=== PATIENT | male | born 1950 | race Caucasian/White ===

== ENCOUNTER → 2017-05-22 | Outpatient (CLI) | payer OTHER | END | disposition home or self-care (01) | LOC: PCVCCLINIC 15:46 | PROVIDERS: ATTEND Internal Medicine Cardiovascular Disease | DX: I10 Essential (primary) hypertension (principal); E78.00 Pure hypercholesterolemia, unspecified; G47.33 Obstructive sleep apnea (adult) (pediatric); R94.31 Abnormal electrocardiogram [ECG] [EKG]; Z79.82 Long term (current) use of aspirin; Z79.899 Other long term (current) drug therapy | CPT/HCPCS: 80061; 93005; G0463 ==

== ENCOUNTER → 2017-11-21 | Outpatient (CLI) | payer OTHER | END | disposition home or self-care (01) | LOC: PCVCIMAG 13:00 | DX: I10 Essential (primary) hypertension (principal); E78.5 Hyperlipidemia, unspecified; G47.30 Sleep apnea, unspecified | CPT/HCPCS: 80061; 93325; 93351 ==

== ENCOUNTER → 2018-08-26 | Outpatient (CLI) | payer MEDICARE, BC | END | disposition home or self-care (01) | LOC: PCVCCLINIC 11:07 | PROVIDERS: ATTEND Internal Medicine Cardiovascular Disease | DX: I10 Essential (primary) hypertension (principal); E78.00 Pure hypercholesterolemia, unspecified; E11.9 Type 2 diabetes mellitus without complications; Z82.49 Family history of ischemic heart disease and other diseases of the circulatory system; Z79.82 Long term (current) use of aspirin | CPT/HCPCS: 36415; 80061; 93005; G0463 ==

== ENCOUNTER → 2019-02-10 | Outpatient (CLI) | payer MEDICARE, BC | END | disposition home or self-care (01) | LOC: PCVCCLINIC 12:43 | PROVIDERS: ATTEND Internal Medicine Cardiovascular Disease | DX: E78.00 Pure hypercholesterolemia, unspecified (principal); E11.9 Type 2 diabetes mellitus without complications; I10 Essential (primary) hypertension | CPT/HCPCS: 36415; 80061; 85610 ==

== ENCOUNTER → 2019-05-26 | Outpatient (CLI) | payer MEDICARE, BC ==
--- NOTE | 2019-05-26 15:13 | PCVCIMAG ---
APPROVED REPORT Study performed: 05/26/2019 10:53:39 Exam: Stress Echocardiogram Indication: DM, HTN, HLP, FAM HX CAD Patient Location: Echo lab Stress Nurse: Bria Felipe RN Status: routine Ht: 6 ft 2 in HR: 71 bpm BP: 134/86 mmHg Rhythm: NSR Procedure The patient underwent an Exercise Stress Test using the Gino Protocol. Blood pressure, heart rate, and EKG were monitored. An Echocardiogram was performed by topography technician in four stages in quad fashion. At peak stress, four selected images were obtained and placed side by side with resting images for comparison. Stress Test Details Stress Test: Exercise stress testing was performed using a Gnio protocol. HR Resting HR: 71 bpmMax Heart Rate (APMHR): 153 bpm Max HR Achieved: 160 bpmTarget HR (85% APMHR): 130 bpm % of APMHR: 104 Recovery HR: 83 bpm HR response to stress: Normal HR response to stress BP Resting BP: 134/86 mmHg Max BP: 224/90 mmHg Recovery BP: 160/90 mmHg BP response to stress: Normal blood pressure response to stress. ECG Resting ECG: Sinus Rhythm w/ incomplete RBBB Stress ECG: Sinus Rhythm w/ incomplete RBBB ST Change: Normal Arrhythmia: occasional PVC Recovery ECG: Sinus Rhythm w/ incomplete RBBB Recovery ST Change: Normal Recovery Arrhythmia: None Clinical Reason for Termination: Maximal effort Stress Symptoms: Dyspnea Exercise duration: 7 min 30 sec Highest Stage Achieved: Stage 3: 3.4 mph at 14% grade. Exercise capacity: 10.1 METs Overall Exercise Capacity for Age: Normal Scale: Sedentary Angina Score: None Pre-Stress Echo The resting Echocardiogram showed normal left ventricular contractility with an estimated Ejection Fraction of about 50-55%. The resting echocardiogram demonstrated normal wall motion in all wall segments. Post-Stress Echo The stress Echocardiogram showed left ventricular contractility with an estimated Ejection Fraction of about 60-65%. Compared to rest, there were no stress-induced wall motion abnormalities. Clinical No clinical or ECG evidence for ischemia. Conclusion Clinical Response: Non-ischemic Exercise Capacity: Average Stress ECG Response: Non-ischemic Stress Echo Images: Non-ischemic The left ventricle is normal in size and wall thickness in both the rest and stress images. Normal color doppler. No regurgitation or stenosis present on pulmonic, mitral, tricuspid and aortic valves. Other Information Study Quality: Adequate <Conclusion> The left ventricle is normal in size and wall thickness in both the rest and stress images. Normal color doppler. No regurgitation or stenosis present on pulmonic, mitral, tricuspid and aortic valves.
== END | disposition home or self-care (01) ==
LOC: PCVCIMAG 10:45
PROVIDERS: ATTEND Internal Medicine Cardiovascular Disease
DX: E78.00 Pure hypercholesterolemia, unspecified (principal); E11.9 Type 2 diabetes mellitus without complications; I10 Essential (primary) hypertension
CPT/HCPCS: 93325; 93351